=== PATIENT | male | born 1955 | race Caucasian/White ===

== ENCOUNTER 2018-05-17 14:46 | Outpatient (CLI) | payer MEDICARE, BC ==
--- NOTE | 2018-05-17 15:46 | RAD ---
LEFT HIP TWO VIEWS: 05/17/18 HISTORY: Hip pain. FINDINGS: Mild joint space narrowing, osteophytosis, and subchondral sclerosis. No acute fracture, dislocation, or aggressive osseous erosions. Femoral head contour is maintained. Subcortical cysts involves the lateral acetabulum. Lobular well corticated ossification just medial t o the greater trochanter on the frontal view may represent a bone island. IMPRESSION: Mild osteoarthritic changes left hip. POS: [facility]
--- NOTE | 2018-05-17 15:47 | RAD ---
RIGHT HIP TWO VIEWS: 05/17/18 HISTORY: Bilateral hip pain. FINDINGS: Mild joint space narrowing, osteophytosis, and subchondral sclerosis. Femoral head contour is maintai francine. No acute fracture, dislocation, or aggressive osseous erosions. IMPRESSION: Mild osteoarthritic changes right hip. POS: [facility]
== END 2018-05-17 14:47 | disposition home or self-care (01) ==
LOC: SCSRAD 14:46
PROVIDERS: ATTEND Family Medicine
DX: M25.551 Pain in right hip (principal); M25.552 Pain in left hip; M16.0 Bilateral primary osteoarthritis of hip
CPT/HCPCS: 36415; 80053; 80061; 82043; 82306; 83036

== ENCOUNTER 2020-08-12 06:13 | Day surgery (SDC) | payer MEDICARE, BC ==
[2020-08-11 09:56] VITALS: BMI 27.1
[2020-08-12] MEDS ORDERED: PROPOFOL 200 MG/20 ML VIAL ONE (08:16)
== END 2020-08-12 09:52 | disposition home or self-care (01) ==
LOC: SDC 06:13
PROVIDERS: ATTEND Internal Medicine Gastroenterology
PROC: 0DJ08ZZ Inspection of Upper Intestinal Tract, Via Natural or Artificial Opening Endoscopic (ICD-10-PCS; principal; 2020-08-12)
PROC: 0DBN8ZX Excision of Sigmoid Colon, Via Natural or Artificial Opening Endoscopic, Diagnostic (ICD-10-PCS; 2020-08-12)
PROC: 0DBL8ZX Excision of Transverse Colon, Via Natural or Artificial Opening Endoscopic, Diagnostic (ICD-10-PCS; 2020-08-12)
DX: D12.3 Benign neoplasm of transverse colon (principal); D12.5 Benign neoplasm of sigmoid colon; D50.9 Iron deficiency anemia, unspecified; K44.9 Diaphragmatic hernia without obstruction or gangrene; K57.30 Diverticulosis of large intestine without perforation or abscess without bleeding; I48.91 Unspecified atrial fibrillation; J44.9 Chronic obstructive pulmonary disease, unspecified; E11.9 Type 2 diabetes mellitus without complications; I10 Essential (primary) hypertension; F10.11 Alcohol abuse, in remission; Z87.891 Personal history of nicotine dependence; Z79.1 Long term (current) use of non-steroidal anti-inflammatories (NSAID); Z79.82 Long term (current) use of aspirin; Z79.84 Long term (current) use of oral hypoglycemic drugs; Z79.899 Other long term (current) drug therapy; Z88.0 Allergy status to penicillin; Z88.1 Allergy status to other antibiotic agents; Z88.5 Allergy status to narcotic agent; Z88.8 Allergy status to other drugs, medicaments and biological substances; Z91.040 Latex allergy status
CPT/HCPCS: 88305; J2704

== ENCOUNTER 2025-02-13 10:30 | Day surgery (SDC) | payer MEDICARE ==
[2025-02-10 13:30] VITALS: BMI 24.4
[2025-02-13] MEDS ORDERED: PROPOFOL 40 ML ONE (13:56)
[2025-02-13] MEDS ORDERED: Lidocaine 1% PF 5 ML VIAL ONE (14:18)
[2025-02-13] MEDS ORDERED: PHENYLEPHRINE-NS 100 MCG/ML 10 ML SYRINGE ONE (14:25)
[2025-02-13] MEDS ORDERED: Ondansetron PF 4 MG/2 ML Vial ONE (14:26)
== END 2025-02-13 16:50 | disposition home or self-care (01) ==
LOC: SDC 10:30
PROVIDERS: ATTEND Orthopaedic Surgery
PROC: 01N54ZZ Release Median Nerve, Percutaneous Endoscopic Approach (ICD-10-PCS; principal; 2025-02-13)
PROC: 01N40ZZ Release Ulnar Nerve, Open Approach (ICD-10-PCS; 2025-02-13)
DX: G56.03 Carpal tunnel syndrome, bilateral upper limbs (principal); G56.23 Lesion of ulnar nerve, bilateral upper limbs; G54.5 Neuralgic amyotrophy; M18.12 Unilateral primary osteoarthritis of first carpometacarpal joint, left hand; I10 Essential (primary) hypertension; I48.91 Unspecified atrial fibrillation; E11.9 Type 2 diabetes mellitus without complications; E78.5 Hyperlipidemia, unspecified; K21.9 Gastro-esophageal reflux disease without esophagitis; J45.909 Unspecified asthma, uncomplicated; Z96.652 Presence of left artificial knee joint; Z98.890 Other specified postprocedural states; Z91.040 Latex allergy status; Z88.0 Allergy status to penicillin; Z88.1 Allergy status to other antibiotic agents; Z88.8 Allergy status to other drugs, medicaments and biological substances; Z88.5 Allergy status to narcotic agent; Z79.51 Long term (current) use of inhaled steroids; Z79.84 Long term (current) use of oral hypoglycemic drugs; Z79.01 Long term (current) use of anticoagulants; Z79.899 Other long term (current) drug therapy
CPT/HCPCS: 29848; 64718; J0665; J1100; J2405; J2704; J3010; J3490; A6223